=== PATIENT | female | born 1965 | race Caucasian/White ===

== ENCOUNTER 2017-08-27 18:38 | Inpatient (IN) ==
[2017-08-27] MEDS ORDERED: LEVOFLOXACIN INJ 500 MG in PREMIX 1 EACH IV STA (19:41)
[2017-08-27] MEDS ORDERED: methylPREDNISolone SOD SUC 125 MG/2 ML VIAL IV STA (19:41)
[2017-08-27] MEDS ORDERED: ONDANSETRON 4 MG/2 ML VIAL IV STA (19:41)
[2017-08-27] MEDS ORDERED: FUROSEMIDE 100 MG/10 ML VIAL IV STA (19:41)
[2017-08-27] MEDS ORDERED: ALBUTEROL NEB SOLN 5 MG/ML 20 ML/BOTTLE RESP TX SCH (20:00)
[2017-08-27 20:25] LABS: Basophils % 0.2 % (0.0-0.8); Hematocrit 45.8 VOL% (35.7-47.0); Immature Granulocytes % 0.7 %; Immature Granulocytes Absolute 0.08 #; Lymphocytes # 2.9 10*3/uL (1.4-4.0); Lymphocytes % 23.9 % (21.3-54.2); Mean Corpuscular HGB Conc 32.8 GM/DL (32-36); Mean Corpuscular Hemoglobin 34 PG (27-34); Mean Corpuscular Volume 103.4 FL (87-102); Mean Platelet Volume 9.9 FL (9.6-12.0); Monocytes # 0.9 10*3/uL (0.11-0.8); Monocytes % 7.6 % (1.7-12.7); Neutrophils # 8.2 10*3/uL (1.4-7.4); Neutrophils % 67.6 % (38.7-73.9); Platelet Count 251 T/CUMM (130-400); Red Blood Count 4.43 MC/CUMM (3.8-5.5); Red Cell Distribution Width 13.8 % (9.3-17.3); White Blood Count 12.1 T/CUMM (4-12)
[2017-08-27 20:27] LABS: ABG Base Excess 13.1 MMOL/L (-2.5-2.5); ABG HCO3 42.8 MMOL/L (20-26); ABG Oxygen Saturation 97.6 % (95-100); ABG PH 7.361 (7.35-7.45); ABG PO2 113.7 MM HG (80-95); ABG TCO2 45.2 MMOL/L (23-27); Allen Test Positive
[2017-08-27 20:28] LABS: ABG PCO2 77.3 MM HG (35-48)
[2017-08-27 20:36] LABS: PT Patient Result 10.8 SECS
[2017-08-27 20:47] LABS: Albumin 3.1 G/DL (3.4-5.0); Bilirubin,Total 0.6 MG/DL (0.2-1.0); Calcium 8.6 MG/DL (8.5-10.1); Potassium 3.4 MMOL/L (3.5-5.1)
[2017-08-27] MEDS ORDERED: ALBUTEROL/IPRATROPIUM 3 ML NEB RESP TX STA (21:31)
[2017-08-27] MEDS ORDERED: ALBUTEROL 2.5 MG/3 ML NEB RESP TX PRN ×2 (22:19→22:30)
[2017-08-27] MEDS ORDERED: guaiFENesin/DM ER 600-30 MG TABLET PO PRN (22:26)
[2017-08-27] MEDS ORDERED: ONDANSETRON 4 MG/2 ML VIAL IV PRN (22:26)
[2017-08-27] MEDS ORDERED: MECLIZINE 25 MG TABLET PO PRN (22:30)
[2017-08-27 22:48] LABS: Apearance,Urine CLEAR (Clear); Bilirubin,Urine Negative (Negative); Blood, Urine Negative (Negative); Glucose,Urine (UA) Negative (Negative); Ketones,Urine Negative (Negative); Nitrite,Urine Negative (Negative); Protein,Urine Negative; Squamous Epithelial Cell,Urine Occasional /HPF (0-10); Urine Color Straw (Yellow); Urine Specific Gravity 1.003 (1.001-1.035); Urine Urobilinogen < 2.0 EU/DL (0.2-1.0); WBC,Urine <1 /HPF (0-6)
[2017-08-28] MEDS: methylPREDNISolone SOD SUC 40 MG/1 ML VIAL IV SCH ×4 (01:21→18:12)
[2017-08-28] MEDS: ALBUTEROL/IPRATROPIUM 3 ML NEB RESP TX SCH ×5 (02:40→19:21)
[2017-08-28] MEDS: NICOTINE 21 MG/24 HR PATCH TRANSDERM PRN (03:19)
[2017-08-28 05:29] LABS: Basophils % 0.1 % (0.0-0.8); Hematocrit 46.3 VOL% (35.7-47.0); Hemoglobin 14.5 GM/DL (12.0-16.0); Immature Granulocytes Absolute 0.08 #; Lymphocytes # 0.5 10*3/uL (1.4-4.0); Lymphocytes % 5.7 % (21.3-54.2); Mean Corpuscular HGB Conc 31.3 GM/DL (32-36); Mean Corpuscular Hemoglobin 34 PG (27-34); Mean Corpuscular Volume 107.4 FL (87-102); Monocytes # 0.1 10*3/uL (0.11-0.8); Monocytes % 1.3 % (1.7-12.7); Neutrophils # 7.7 10*3/uL (1.4-7.4); Neutrophils % 91.9 % (38.7-73.9); Platelet Count 249 T/CUMM (130-400); Red Blood Count 4.31 MC/CUMM (3.8-5.5); Red Cell Distribution Width 13.9 % (9.3-17.3); White Blood Count 8.4 T/CUMM (4-12)
[2017-08-28 06:01] LABS: Calcium 8.1 MG/DL (8.5-10.1); Osmolality,Calculated 282.5 MOS/KG (273-304); Potassium 3.7 MMOL/L (3.5-5.1); Risk Ratio 4.67; Thyroid Stimulating Hormone 0.303 uIU/ml (0.358-3.74); VLDL CHOLESTEROL 15.8 MG/DL
[2017-08-28 06:16] LABS: Hypochromasia 1+; Lymphocytes 6 % (20-55); Segmented Neutrophils 93 % (50-85); Total Cells Counted 100
[2017-08-28 06:17] LABS: Macrocytosis Slight; Platelet Estimate Normal
[2017-08-28] MEDS: FUROSEMIDE 40 MG/4 ML VIAL IV SCH ×2 (08:06→16:07)
[2017-08-28] MEDS: PANTOPRAZOLE 40 MG TABLET PO SCH (08:07)
[2017-08-28] MEDS: amLODIPine 5 MG TABLET PO SCH (08:07)
[2017-08-28] MEDS: POTASSIUM CHLORIDE 20 MEQ TABLET PO SCH (08:07)
[2017-08-28] MEDS: ENOXAPARIN 40 MG/0.4 ML SYRINGE SUBCUT SCH (08:07)
[2017-08-28 09:14] LABS: ABG HCO3 37.7 MMOL/L (20-26); ABG Oxygen Saturation 89.5 % (95-100); ABG PH 7.241 (7.35-7.45); ABG PO2 63.2 MM HG (80-95); ABG TCO2 43.1 MMOL/L (23-27)
[2017-08-28 09:15] LABS: Allen Test Positive
[2017-08-28] MEDS ORDERED: LEVOFLOXACIN INJ 750 MG in PREMIX 1 EACH IV SCH (21:00)
[2017-08-29] MEDS: ALBUTEROL/IPRATROPIUM 3 ML NEB RESP TX SCH ×7 (00:17→23:32)
[2017-08-29] MEDS: methylPREDNISolone SOD SUC 40 MG/1 ML VIAL IV SCH ×2 (01:36→06:10)
[2017-08-29 06:01] LABS: Basophils % 0.1 % (0.0-0.8); Hematocrit 46.7 VOL% (35.7-47.0); Hemoglobin 14.3 GM/DL (12.0-16.0); Immature Granulocytes % 0.7 %; Immature Granulocytes Absolute 0.06 #; Lymphocytes # 0.7 10*3/uL (1.4-4.0); Lymphocytes % 7.9 % (21.3-54.2); Mean Corpuscular HGB Conc 30.6 GM/DL (32-36); Mean Corpuscular Hemoglobin 34 PG (27-34); Mean Corpuscular Volume 110.1 FL (87-102); Mean Platelet Volume 9.9 FL (9.6-12.0); Monocytes # 0.4 10*3/uL (0.11-0.8); Monocytes % 4.7 % (1.7-12.7); Neutrophils # 7.9 10*3/uL (1.4-7.4); Neutrophils % 86.6 % (38.7-73.9); Platelet Count 248 T/CUMM (130-400); Red Blood Count 4.24 MC/CUMM (3.8-5.5); Red Cell Distribution Width 13.8 % (9.3-17.3); White Blood Count 9.1 T/CUMM (4-12)
[2017-08-29 06:31] LABS: Calcium 8.5 MG/DL (8.5-10.1); Osmolality,Calculated 281.5 MOS/KG (273-304); Potassium 4.6 MMOL/L (3.5-5.1)
[2017-08-29 06:43] LABS: Macrocytosis 3+; Platelet Estimate Normal
[2017-08-29] MEDS: ENOXAPARIN 40 MG/0.4 ML SYRINGE SUBCUT SCH (08:46)
[2017-08-29] MEDS: POTASSIUM CHLORIDE 20 MEQ TABLET PO SCH (08:47)
[2017-08-29] MEDS: amLODIPine 5 MG TABLET PO SCH (08:47)
[2017-08-29] MEDS: PANTOPRAZOLE 40 MG TABLET PO SCH (08:47)
[2017-08-29] MEDS ORDERED: FUROSEMIDE 40 MG TABLET PO SCH (09:00)
[2017-08-29] MEDS ORDERED: LEVOFLOXACIN 500 MG TABLET PO SCH (09:30)
[2017-08-29] MEDS ORDERED: predniSONE 20 MG TABLET PO SCH (09:30)
[2017-08-29] MEDS: NICOTINE 21 MG/24 HR PATCH TRANSDERM PRN (16:33)
[2017-08-29] MEDS ORDERED: ALPRAZolam 0.5 MG TABLET PO PRN (17:18)
[2017-08-30] MEDS: ALBUTEROL/IPRATROPIUM 3 ML NEB RESP TX SCH ×2 (03:13→07:25)
[2017-08-30 04:29] VITALS: BP 129/83
== END 2017-08-30 09:29 | disposition home or self-care (01) | DRG 140 ==
LOC: N.ED 18:38 → SUATTDRO 21:35 → N.EDINP 21:35 → N.ICU 23:18 → N.2E 08-29 16:00
PROVIDERS: ADMIT Internal Medicine; ATTEND Hospitalist

== ENCOUNTER 2017-09-16 23:45 | Inpatient (IN) ==
[2017-09-17] MEDS ORDERED: ONDANSETRON 4 MG/2 ML VIAL IV STA (00:13)
[2017-09-17] MEDS ORDERED: MORPHINE 10 MG/1 ML VIAL IV STA (00:13)
[2017-09-17] MEDS ORDERED: ENOXAPARIN 100 MG/ML SYRINGE SUBCUT STA (01:07)
[2017-09-17 01:41] LABS: Basophils % 0.4 % (0.0-0.8); Eosinophils # 0.3 10*3/uL (0.0-0.87); Eosinophils % 3.2 % (0.00-10.9); Hematocrit 46.3 VOL% (35.7-47.0); Immature Granulocytes % 0.3 %; Immature Granulocytes Absolute 0.03 #; Lymphocytes # 2.2 10*3/uL (1.4-4.0); Lymphocytes % 22.9 % (21.3-54.2); Mean Corpuscular HGB Conc 32.4 GM/DL (32-36); Mean Corpuscular Hemoglobin 34 PG (27-34); Mean Corpuscular Volume 106.2 FL (87-102); Mean Platelet Volume 9.6 FL (9.6-12.0); Monocytes # 0.6 10*3/uL (0.11-0.8); Neutrophils # 6.3 10*3/uL (1.4-7.4); Neutrophils % 67.2 % (38.7-73.9); Platelet Count 210 T/CUMM (130-400); Red Blood Count 4.36 MC/CUMM (3.8-5.5); White Blood Count 9.4 T/CUMM (4-12)
[2017-09-17 01:56] LABS: PT Patient Result 10.3 SECS
[2017-09-17 02:06] LABS: Calcium 8.1 MG/DL (8.5-10.1); Osmolality,Calculated 280.1 MOS/KG (273-304); Potassium 3.6 MMOL/L (3.5-5.1)
[2017-09-17] MEDS ORDERED: LORazepam 2 MG/1 ML VIAL IV STA (02:21)
[2017-09-17] MEDS ORDERED: LORazepam 2 MG/1 ML VIAL ONE (02:22)
[2017-09-17] MEDS ORDERED: ALBUTEROL/IPRATROPIUM 3 ML NEB RESP TX PRN (04:27)
[2017-09-17] MEDS ORDERED: ACETAMINOPHEN 325 MG TABLET PO PRN (04:27)
[2017-09-17] MEDS ORDERED: ONDANSETRON 4 MG/2 ML VIAL IV PRN (04:27)
[2017-09-17] MEDS: ALBUTEROL/IPRATROPIUM 3 ML NEB RESP TX SCH ×3 (07:45→19:40)
[2017-09-17] MEDS ORDERED: PANTOPRAZOLE 40 MG TABLET PO SCH (09:00)
[2017-09-17] MEDS ORDERED: FUROSEMIDE 40 MG TABLET PO SCH (09:00)
[2017-09-17] MEDS ORDERED: POTASSIUM CHLORIDE 20 MEQ TABLET PO SCH (09:00)
[2017-09-17] MEDS ORDERED: NICOTINE 21 MG/24 HR PATCH TRANSDERM SCH (09:00)
[2017-09-17] MEDS ORDERED: FAMOTIDINE 20 MG TABLET PO SCH (09:00)
[2017-09-17] MEDS: DOCUSATE SODIUM 100 MG CAPSULE PO SCH ×2 (10:13→21:06)
[2017-09-17] MEDS: ENOXAPARIN 100 MG/ML SYRINGE SUBCUT SCH (14:25)
[2017-09-17 15:17] LABS: Barbiturates Screen,Urine Negative (Negative); Benzodiazepines Screen,Urine Negative (Negative); Cannabinoid Screen,Urine Negative (Negative); Opiate Screen,Urine Positive (Negative); Phencyclidine Screen,Urine Negative (Negative)
[2017-09-17] MEDS ORDERED: NYSTATIN POWDER 15 GM BOTTLE TOP SCH (21:00)
[2017-09-17] MEDS: MORPHINE 4 MG/1 ML VIAL IV PRN (21:06)
[2017-09-18] MEDS: ALBUTEROL/IPRATROPIUM 3 ML NEB RESP TX SCH ×2 (00:02→06:48)
[2017-09-18] MEDS: ENOXAPARIN 100 MG/ML SYRINGE SUBCUT SCH (00:35)
[2017-09-18] MEDS: MORPHINE 4 MG/1 ML VIAL IV PRN (03:15)
[2017-09-18 07:43] VITALS: BP 107/64
[2017-09-18 08:40] LABS: PT Patient Result 10.5 SECS
[2017-09-18] MEDS ORDERED: APIXABAN 5 MG TABLET PO SCH (09:00)
[2017-09-18] MEDS ORDERED: WARFARIN 5 MG TABLET PO SCH (18:00)
[2017-09-25] MEDS ORDERED: APIXABAN 5 MG TABLET PO SCH (09:00)
== END 2017-09-18 08:46 | disposition home or self-care (01) | DRG 197 ==
LOC: EDBD → EDUNIT# → N.ED 23:45 → N.EDINP 09-17 03:15 → N.TELES 09-17 03:59
PROVIDERS: ADMIT Internal Medicine Infectious Disease; ATTEND Internal Medicine Infectious Disease

== ENCOUNTER 2018-01-27 15:45 | Inpatient (IN) ==
[2018-01-27] MEDS ORDERED: MORPHINE 4 MG/1 ML VIAL IV STA (16:39)
[2018-01-27] MEDS ORDERED: ONDANSETRON 4 MG/2 ML VIAL IV STA (16:39)
[2018-01-27] MEDS ORDERED: FUROSEMIDE 100 MG/10 ML VIAL IV STA (16:39)
[2018-01-27] MEDS ORDERED: methylPREDNISolone SOD SUC 125 MG/2 ML VIAL IV STA (16:39)
[2018-01-27] MEDS ORDERED: ALBUTEROL NEB SOLN 5 MG/ML 20 ML/BOTTLE RESP TX SCH (17:00)
[2018-01-27 17:08] LABS: ABG Base Excess 10.6 MMOL/L (-2.5-2.5); ABG HCO3 34.3 MMOL/L (20-26); ABG Oxygen Saturation 94.4 % (95-100); ABG PH 7.324 (7.35-7.45); ABG PO2 69.2 MM HG (80-95); ABG TCO2 35.8 MMOL/L (23-27)
[2018-01-27 17:38] LABS: Basophils # 0.1 10*3/uL (0.0-0.2); Basophils % 0.5 % (0.0-0.8); Eosinophils # 0.1 10*3/uL (0.0-0.87); Eosinophils % 0.8 % (0.00-10.9); Hematocrit 42.9 VOL% (35.7-47.0); Hemoglobin 13.7 GM/DL (12.0-16.0); Immature Granulocytes % 0.5 %; Immature Granulocytes Absolute 0.05 #; Lymphocytes # 1.9 10*3/uL (1.4-4.0); Lymphocytes % 19.1 % (21.3-54.2); Mean Corpuscular HGB Conc 31.9 GM/DL (32-36); Mean Corpuscular Hemoglobin 35 PG (27-34); Mean Platelet Volume 10.2 FL (9.6-12.0); Monocytes # 0.6 10*3/uL (0.11-0.8); Monocytes % 5.6 % (1.7-12.7); Neutrophils # 7.3 10*3/uL (1.4-7.4); Neutrophils % 73.5 % (38.7-73.9); Platelet Count 262 T/CUMM (130-400); Red Cell Distribution Width 15.4 % (9.3-17.3)
[2018-01-27 17:40] LABS: Apearance,Urine CLEAR (Clear); Bacteria,Urine Moderate /HPF (Few); Bilirubin,Urine Negative (Negative); Blood, Urine Negative (Negative); Glucose,Urine (UA) Negative (Negative); Ketones,Urine Negative (Negative); Mucus,Urine Occasional /LPF (Occasional); Nitrite,Urine Positive (Negative); Protein,Urine Negative; RBC,Urine <1 /HPF (0-4); Squamous Epithelial Cell,Urine Occasional /HPF (0-10); Urine Color Yellow (Yellow); Urine Specific Gravity 1.008 (1.001-1.035); Urine Urobilinogen < 2.0 EU/DL (0.2-1.0); WBC,Urine 2 /HPF (0-6)
[2018-01-27 17:52] LABS: PT Patient Result 10.5 SECS
[2018-01-27 18:00] LABS: Alanine Aminotransferase 12 U/L (13-56); Albumin 3.2 G/DL (3.4-5.0); Alkaline Phosphatase 87 U/L (45-117); Aspartate Amino Transferase 12 U/L (0-37); Blood Urea Nitrogen 13 MG/DL (7-18); Calcium 8.1 MG/DL (8.5-10.1); Glucose 101 MG/DL (74-106); Osmolality,Calculated 282.1 MOS/KG (273-304); Potassium 3.2 MMOL/L (3.5-5.1); Sodium 142 MMOL/L (136-145); Total Protein 6.6 G/DL (6.4-8.3)
[2018-01-27] MEDS ORDERED: LEVOFLOXACIN INJ 750 MG in PREMIX 1 EACH IV STA (19:38)
[2018-01-27] MEDS ORDERED: MECLIZINE 25 MG TABLET PO PRN (20:51)
[2018-01-27] MEDS ORDERED: GLUCAGON 1 MG VIAL IM PRN (20:51)
[2018-01-27] MEDS ORDERED: ALBUTEROL/IPRATROPIUM 3 ML NEB RESP TX PRN (20:51)
[2018-01-27] MEDS ORDERED: ALBUTEROL 2.5 MG/3 ML NEB RESP TX PRN (20:51)
[2018-01-27] MEDS ORDERED: FUROSEMIDE 40 MG TABLET PO PRN (20:51)
[2018-01-27] MEDS ORDERED: DEXTROSE 50% 25 GM/50 ML VIAL IV PRN (20:51)
[2018-01-27] MEDS ORDERED: FAMOTIDINE 20 MG TABLET PO PRN (20:51)
[2018-01-27] MEDS ORDERED: ACETAMINOPHEN 325 MG TABLET PO PRN (20:51)
[2018-01-27] MEDS ORDERED: ENOXAPARIN 40 MG/0.4 ML SYRINGE SUBCUT SCH (21:00)
[2018-01-27] MEDS ORDERED: INSULIN LISPRO 100 UNIT/ML SUBCUT SCH (21:00)
[2018-01-27] MEDS: POTASSIUM CHLORIDE 20 MEQ TABLET PO SCH (21:17)
[2018-01-28] MEDS: POTASSIUM CHLORIDE 20 MEQ TABLET PO SCH ×3 (00:40→09:29)
[2018-01-28 06:23] LABS: Blood Urea Nitrogen 14 MG/DL (7-18); Calcium 8.3 MG/DL (8.5-10.1); Glucose 187 MG/DL (74-106); Osmolality,Calculated 284.4 MOS/KG (273-304); Potassium 3.3 MMOL/L (3.5-5.1); Sodium 140 MMOL/L (136-145); Troponin I < 0.015 NG/ML (0.00-0.045)
[2018-01-28 08:12] VITALS: BP 128/77
[2018-01-28] MEDS ORDERED: LEVOFLOXACIN INJ 500 MG in PREMIX 1 EACH IV SCH (09:00)
[2018-01-28] MEDS ORDERED: methylPREDNISolone SOD SUC 40 MG/1 ML VIAL IV SCH (09:00)
== END 2018-01-28 09:57 | disposition left against medical advice (07) | DRG 140 ==
LOC: EDBD → EDUNIT# → N.ED 15:45 → N.EDINP 19:50 → N.2E 20:20
PROVIDERS: ADMIT Internal Medicine Nephrology; ATTEND Internal Medicine Nephrology

== ENCOUNTER 2019-05-29 11:33 | Inpatient (IN) ==
[2019-05-29 12:35] LABS: Basophils % 0.4 % (0.0-0.8); Eosinophils % 0.3 % (0.00-10.9); Hematocrit 46.7 VOL% (35.7-47.0); Hemoglobin 14.7 GM/DL (12.0-16.0); Immature Granulocytes % 0.4 %; Immature Granulocytes Absolute 0.04 #; Lymphocytes # 1.7 10*3/uL (1.4-4.0); Lymphocytes % 19.2 % (21.3-54.2); Mean Corpuscular HGB Conc 31.5 GM/DL (32-36); Mean Corpuscular Volume 106.9 FL (87-102); Mean Platelet Volume 9.8 FL (9.6-12.0); Monocytes % 9.9 % (1.7-12.7); Neutrophils % 69.8 % (38.7-73.9); Platelet Count 308 T/CUMM (130-400); Red Blood Count 4.37 MC/CUMM (3.8-5.5); Red Cell Distribution Width 13.4 % (9.3-17.3); White Blood Count 8.9 T/CUMM (4-12)
[2019-05-29 12:48] LABS: INR 1.1; PT Patient Result 11.7 SECS (9.6-12.2); Partial Thromboplastin Time 27.6 SECS (20.8-36.0)
[2019-05-29 12:53] LABS: Alanine Aminotransferase 13 U/L (13-56); Albumin 3.4 G/DL (3.4-5.0); Alkaline Phosphatase 94 U/L (45-117); Aspartate Amino Transferase 13 U/L (0-37); Blood Urea Nitrogen 17 MG/DL (7-18); Estimated Glom Filtration Rate 119 ML/MIN; Glucose 89 MG/DL (74-106); Osmolality,Calculated 266.4 MOS/KG (273-304); Total Protein 7.3 G/DL (6.4-8.3); Troponin I < 0.015 NG/ML (0.00-0.045)
[2019-05-29] MEDS: dilTIAZem Drip 125 MG/125 ML PREMIX IV SCH ×2 (13:00→22:39)
[2019-05-29] MEDS ORDERED: ONDANSETRON 4 MG/2 ML VIAL IV STA (13:49)
[2019-05-29] MEDS ORDERED: MORPHINE 4 MG/1 ML VIAL IV ONE (13:49)
[2019-05-29] MEDS ORDERED: BISACODYL 5 MG TABLET PO PRN (14:10)
[2019-05-29] MEDS ORDERED: DILTIAZEM 50 MG/10 ML VIAL IV STA (14:10)
[2019-05-29] MEDS ORDERED: guaiFENesin/DM ER 600-30 MG TABLET PO PRN (14:10)
[2019-05-29] MEDS ORDERED: NICOTINE 21 MG/24 HR PATCH TRANSDERM PRN (14:10)
[2019-05-29] MEDS ORDERED: diphenhydrAMINE CAP 25 MG CAPSULE PO PRN (14:10)
[2019-05-29] MEDS ORDERED: ONDANSETRON 4 MG/2 ML VIAL IV PRN (14:10)
[2019-05-29 14:27] LABS: Risk Ratio 4.28; VLDL CHOLESTEROL 16.8 MG/DL
[2019-05-29] MEDS ORDERED: dilTIAZem Drip 125 MG/125 ML PREMIX IV SCH (14:30)
[2019-05-29 14:35] LABS: Thyroid Stimulating Hormone 1.47 uIU/ml (0.358-3.74)
[2019-05-29] MEDS: SODIUM CHLORIDE 0.9% 1,000 ML IV SCH (14:35)
[2019-05-29 14:40] LABS: Folate 6.7 NG/ML (5.4-24.0)
[2019-05-29] MEDS: ALBUTEROL/IPRATROPIUM 3 ML NEB RESP TX SCH (18:40)
[2019-05-29] MEDS: APIXABAN 5 MG TABLET PO SCH (22:43)
[2019-05-29] MEDS: KETOCONAZOLE 2% CREAM 30 GM TUBE TOP SCH (22:46)
[2019-05-30] MEDS: ALBUTEROL/IPRATROPIUM 3 ML NEB RESP TX SCH ×2 (00:40→07:10)
[2019-05-30] MEDS: SODIUM CHLORIDE 0.9% 1,000 ML IV SCH (01:08)
[2019-05-30] MEDS: dilTIAZem Drip 125 MG/125 ML PREMIX IV SCH (05:17)
[2019-05-30] MEDS: APIXABAN 5 MG TABLET PO SCH (08:37)
[2019-05-30 08:49] VITALS: BP 130/66
[2019-05-30] MEDS ORDERED: PANTOPRAZOLE 40 MG TABLET PO SCH (09:00)
[2019-05-30] MEDS: KETOCONAZOLE 2% CREAM 30 GM TUBE TOP SCH (10:38)
== END 2019-05-30 11:24 | disposition left against medical advice (07) | DRG 201 ==
LOC: EDUNIT# → EDBD → N.ED 11:33 → N.EDINP 14:10 → SUATTDRO 14:10 → N.EDINP 16:50 → N.TELEN 17:02
PROVIDERS: ADMIT Family Medicine; ATTEND Internal Medicine

== ENCOUNTER 2020-02-10 00:55 | Observation (INO) ==
[2020-02-10] MEDS ORDERED: methylPREDNISolone SOD SUC 125 MG/2 ML VIAL IV STA (01:55)
[2020-02-10] MEDS ORDERED: ALBUTEROL/IPRATROPIUM 3 ML NEB RESP TX STA ×2 (01:55→03:25)
[2020-02-10] MEDS ORDERED: LEVOFLOXACIN INJ 500 MG in PREMIX 1 EACH IV STA (03:25)
[2020-02-10 05:22] LABS: Basophils % 0.3 % (0.0-0.8); Eosinophils % 0.2 % (0.00-10.9); Hematocrit 47.7 VOL% (35.7-47.0); Hemoglobin 14.7 GM/DL (12.0-16.0); Immature Granulocytes % 0.5 %; Immature Granulocytes Absolute 0.03 #; Lymphocytes # 0.7 10*3/uL (1.4-4.0); Lymphocytes % 11.3 % (21.3-54.2); Mean Corpuscular HGB Conc 30.8 GM/DL (32-36); Mean Corpuscular Volume 92.1 FL (87-102); Mean Platelet Volume 9.2 FL (9.6-12.0); Monocytes % 2.6 % (1.7-12.7); NRBC # 0.02 10*3/uL; Neutrophils % 85.1 % (38.7-73.9); Platelet Count 251 T/CUMM (130-400); Red Blood Count 5.18 MC/CUMM (3.8-5.5); Red Cell Distribution Width 20.3 % (9.3-17.3)
[2020-02-10 05:52] LABS: Albumin 3.4 G/DL (3.4-5.0); Bilirubin,Total 1.2 MG/DL (0.2-1.0); Calcium 8.7 MG/DL (8.5-10.1); Total Protein 7.2 G/DL (6.4-8.3)
[2020-02-10 05:54] LABS: Osmolality,Calculated 280.4 MOS/KG (273-304)
[2020-02-10] MEDS ORDERED: DEXTROSE 50% 25 GM/50 ML VIAL IV PRN (07:38)
[2020-02-10] MEDS ORDERED: DOCUSATE SODIUM 100 MG CAPSULE PO PRN (07:38)
[2020-02-10] MEDS ORDERED: GLUCAGON 1 MG VIAL IM PRN (07:38)
[2020-02-10] MEDS ORDERED: ACETAMINOPHEN 325 MG TABLET PO PRN (07:38)
[2020-02-10] MEDS ORDERED: ONDANSETRON 4 MG/2 ML VIAL IV PRN (07:38)
[2020-02-10] MEDS ORDERED: hydrALAZINE 20 MG/1 ML VIAL IV PRN (07:38)
[2020-02-10 08:08] LABS: Risk Ratio 3.26; Thyroid Stimulating Hormone 2.11 uIU/ml (0.358-3.74); VLDL CHOLESTEROL 9.8 MG/DL
[2020-02-10 08:14] LABS: Allen Test Positive
[2020-02-10 08:15] LABS: ABG Base Excess 10.9 MMOL/L (-2.5-2.5); ABG HCO3 34.5 MMOL/L (20-26); ABG PH 7.349 (7.35-7.45); ABG PO2 60.9 MM HG (80-95); ABG TCO2 35.3 MMOL/L (23-27)
[2020-02-10 08:16] LABS: ABG PCO2 73.9 MM HG (35-48)
[2020-02-10] MEDS ORDERED: ENOXAPARIN 40 MG/0.4 ML SYRINGE SUBCUT SCH (09:00)
[2020-02-10] MEDS: PANTOPRAZOLE 40 MG TABLET PO SCH (09:41)
[2020-02-10] MEDS: guaiFENesin/DM ER 600-30 MG TABLET PO SCH ×2 (09:41→20:13)
[2020-02-10] MEDS: methylPREDNISolone SOD SUC 40 MG/1 ML VIAL IV SCH ×2 (09:42→16:26)
[2020-02-10] MEDS: FUROSEMIDE 40 MG/4 ML VIAL IV SCH ×2 (09:43→15:21)
[2020-02-10] MEDS: NICOTINE 21 MG/24 HR PATCH TRANSDERM PRN (11:51)
[2020-02-10] MEDS ORDERED: CYCLOBENZAPRINE 10 MG TABLET PO SCH (15:00)
[2020-02-10] MEDS ORDERED: METOPROLOL TARTRATE 25 MG TABLET PO SCH (21:00)
[2020-02-11] MEDS: methylPREDNISolone SOD SUC 40 MG/1 ML VIAL IV SCH ×2 (00:41→09:36)
[2020-02-11 05:05] LABS: Hematocrit 42.9 VOL% (35.7-47.0); Immature Granulocytes % 0.4 %; Immature Granulocytes Absolute 0.02 #; Lymphocytes # 0.6 10*3/uL (1.4-4.0); Lymphocytes % 11.2 % (21.3-54.2); Mean Corpuscular HGB Conc 30.3 GM/DL (32-36); Mean Corpuscular Volume 90.7 FL (87-102); Mean Platelet Volume 9.5 FL (9.6-12.0); Monocytes % 4.4 % (1.7-12.7); Platelet Count 223 T/CUMM (130-400); Red Blood Count 4.73 MC/CUMM (3.8-5.5); Red Cell Distribution Width 19.9 % (9.3-17.3)
[2020-02-11 05:34] LABS: Calcium 8.4 MG/DL (8.5-10.1); Osmolality,Calculated 272.1 MOS/KG (273-304)
[2020-02-11 07:57] VITALS: BP 107/62
[2020-02-11] MEDS ORDERED: DILTIAZEM CD 240 MG CAPSULE PO SCH (09:00)
[2020-02-11] MEDS ORDERED: RIVAROXABAN 20 MG TABLET PO SCH (09:00)
[2020-02-11] MEDS: NICOTINE 21 MG/24 HR PATCH TRANSDERM PRN (09:36)
[2020-02-11] MEDS: PANTOPRAZOLE 40 MG TABLET PO SCH (09:36)
[2020-02-11] MEDS: guaiFENesin/DM ER 600-30 MG TABLET PO SCH (09:36)
[2020-02-11] MEDS: FUROSEMIDE 40 MG/4 ML VIAL IV SCH (09:36)
== END 2020-02-11 13:20 | disposition home or self-care (01) ==
LOC: EDBD → EDUNIT# → N.ED 00:55 → N.EDINP 07:38 → INTOOBSV 07:38 → SUATTDRO 07:38 → N.5E 08:43
PROVIDERS: ADMIT Internal Medicine; ATTEND Hospitalist

== ENCOUNTER 2020-03-01 19:28 | Observation (INO) ==
[2020-03-01] MEDS ORDERED: SODIUM CHLORIDE 0.9% 1,000 ML IV STA (19:50)
[2020-03-01] MEDS ORDERED: ALBUTEROL/IPRATROPIUM 3 ML NEB RESP TX STA (19:50)
[2020-03-01] MEDS ORDERED: methylPREDNISolone SOD SUC 125 MG/2 ML VIAL IV STA (19:50)
[2020-03-01 20:26] LABS: Basophils % 0.4 % (0.0-0.8); Eosinophils # 0.2 10*3/uL (0.0-0.87); Eosinophils % 1.9 % (0.00-10.9); Hematocrit 43.7 VOL% (35.7-47.0); Hemoglobin 13.4 GM/DL (12.0-16.0); Immature Granulocytes % 0.4 %; Immature Granulocytes Absolute 0.04 #; Lymphocytes # 1.7 10*3/uL (1.4-4.0); Lymphocytes % 18.2 % (21.3-54.2); Mean Corpuscular HGB Conc 30.7 GM/DL (32-36); Mean Corpuscular Volume 92.2 FL (87-102); Mean Platelet Volume 8.7 FL (9.6-12.0); Monocytes % 5.9 % (1.7-12.7); Neutrophils % 73.2 % (38.7-73.9); Platelet Count 311 T/CUMM (130-400); Red Blood Count 4.74 MC/CUMM (3.8-5.5); Red Cell Distribution Width 23.2 % (9.3-17.3); White Blood Count 9.5 T/CUMM (4-12)
[2020-03-01 20:38] LABS: INR 1.1
[2020-03-01 20:38] LABS: ABG HCO3 34.7 MMOL/L (20-26); ABG Oxygen Saturation 96.8 % (95-100); ABG PH 7.331 (7.35-7.45); ABG PO2 81.3 MM HG (80-95); ABG TCO2 36.1 MMOL/L (23-27)
[2020-03-01 20:46] LABS: Albumin 2.9 G/DL (3.4-5.0); Bilirubin,Total 0.7 MG/DL (0.2-1.0); Calcium 8.4 MG/DL (8.5-10.1); Ferritin 22.6 ng/ml (8-252); Osmolality,Calculated 275.7 MOS/KG (273-304); Potassium 4.2 MMOL/L (3.5-5.1); Total Protein 6.8 G/DL (6.4-8.3)
[2020-03-01 20:46] LABS: ABG PCO2 77.1 MM HG (35-48)
[2020-03-01] MEDS ORDERED: LEVOFLOXACIN INJ 500 MG in PREMIX 1 EACH IV STA (20:56)
[2020-03-01] MEDS ORDERED: FUROSEMIDE 40 MG/4 ML VIAL IV STA (20:56)
[2020-03-01] MEDS ORDERED: NICOTINE 21 MG/24 HR PATCH TRANSDERM PRN (21:19)
[2020-03-01] MEDS ORDERED: GLUCAGON 1 MG VIAL IM PRN (21:19)
[2020-03-01] MEDS ORDERED: ONDANSETRON 4 MG/2 ML VIAL IV PRN (21:19)
[2020-03-01] MEDS ORDERED: DEXTROSE 50% 25 GM/50 ML VIAL IV PRN (21:19)
[2020-03-01] MEDS ORDERED: BISACODYL 5 MG TABLET PO PRN (21:19)
[2020-03-01] MEDS ORDERED: hydrALAZINE 20 MG/1 ML VIAL IV PRN (21:19)
[2020-03-01] MEDS ORDERED: ALUMINUM/MAGNES/SIMETH MAX STR 30 ML UDCUP PO PRN (21:19)
[2020-03-01] MEDS ORDERED: guaiFENesin/DM ER 600-30 MG TABLET PO PRN (21:19)
[2020-03-01] MEDS ORDERED: MORPHINE 4 MG/1 ML VIAL IV PRN (21:19)
[2020-03-01] MEDS ORDERED: diphenhydrAMINE CAP 25 MG CAPSULE PO PRN (21:19)
[2020-03-01] MEDS ORDERED: ACETAMINOPHEN 325 MG TABLET PO PRN (21:19)
[2020-03-01] MEDS: ALBUTEROL/IPRATROPIUM 3 ML NEB RESP TX SCH ×2 (23:28→23:43)
[2020-03-02 02:51] LABS: Basophils % 0.2 % (0.0-0.8); Hemoglobin 14.1 GM/DL (12.0-16.0); Immature Granulocytes % 0.5 %; Immature Granulocytes Absolute 0.04 #; Lymphocytes # 0.4 10*3/uL (1.4-4.0); Lymphocytes % 4.3 % (21.3-54.2); Mean Corpuscular HGB Conc 30.7 GM/DL (32-36); Mean Corpuscular Volume 91.6 FL (87-102); Mean Platelet Volume 8.8 FL (9.6-12.0); Platelet Count 308 T/CUMM (130-400); Red Blood Count 5.02 MC/CUMM (3.8-5.5); Red Cell Distribution Width 23.5 % (9.3-17.3); White Blood Count 8.3 T/CUMM (4-12)
[2020-03-02 03:12] LABS: Calcium 8.7 MG/DL (8.5-10.1); Osmolality,Calculated 274.8 MOS/KG (273-304); Potassium 4.4 MMOL/L (3.5-5.1)
[2020-03-02] MEDS: ALBUTEROL/IPRATROPIUM 3 ML NEB RESP TX SCH ×2 (03:24→07:22)
[2020-03-02 03:57] LABS: Lymphocytes 4 % (20-55); Segmented Neutrophils 95 % (50-85); Total Cells Counted 100
[2020-03-02 03:58] LABS: Hypochromasia 1+; Platelet Estimate Normal; Polychromasia Few; Reactive Lymphocytes Few; Stomatocytes Few
[2020-03-02] MEDS ORDERED: methylPREDNISolone SOD SUC 40 MG/1 ML VIAL IV SCH (06:00)
[2020-03-02 07:55] VITALS: BP 127/94
[2020-03-02] MEDS ORDERED: ENOXAPARIN 40 MG/0.4 ML SYRINGE SUBCUT SCH (08:00)
[2020-03-02] MEDS ORDERED: FUROSEMIDE 40 MG/4 ML VIAL IV SCH (08:00)
[2020-03-02] MEDS ORDERED: PANTOPRAZOLE 40 MG TABLET PO SCH (09:00)
[2020-03-02] MEDS ORDERED: DILTIAZEM CD 240 MG CAPSULE PO SCH (09:00)
[2020-03-02] MEDS ORDERED: RIVAROXABAN 20 MG TABLET PO SCH (09:00)
[2020-03-02] MEDS ORDERED: LEVOFLOXACIN INJ 250 MG in PREMIX 1 EACH IV SCH (21:00)
== END 2020-03-02 08:30 | disposition left against medical advice (07) ==
LOC: EDBD → EDUNIT# → N.ED 19:28 → INTOOBSV 21:19 → N.TELES 21:34
PROVIDERS: ADMIT Hospitalist; ATTEND Hospitalist